=== PATIENT | female | born 1950 | race Native Hawaiian/Other Pacific Islander ===

== ENCOUNTER 2021-06-08 12:10 | Observation (INO) | payer OTHER ==
[~2021-06-08] VITALS: Ht 157.5 cm; Wt 54.1 kg
[2021-06-08] VITALS (7 sets, daily range): BP systolic 103–163; BP diastolic 56–105; TEMP 97.1–98.8; Ht 157.5 cm; Wt 54.1 kg
[2021-06-08 13:07] LABS: PLATELET COUNT 232 K/uL (152-353)
[2021-06-08 13:16] LABS: POTASSIUM 4.1 mmol/L (3.6-5.2)
[2021-06-09 00:02] VITALS: BP 136/54; TEMP 98.3
[2021-06-09 04:00] VITALS: BP 117/55; TEMP 98.5
[2021-06-09 04:33] LABS: PLATELET COUNT 171 K/uL (152-353)
[2021-06-09 04:52] LABS: POTASSIUM 3.8 mmol/L (3.6-5.2)
[2021-06-09 08:00] VITALS: BP 103/53; TEMP 98.7
[2021-06-09 12:00] VITALS: BP 120/47; TEMP 98.6
[2021-06-09 16:00] VITALS: BP 130/50; TEMP 98.5
[2021-06-09 20:00] VITALS: BP 122/57; TEMP 97.9
[2021-06-10] VITALS: BP 142/56; TEMP 98.7
[2021-06-10 04:00] VITALS: BP 148/59; TEMP 98.7
[2021-06-10 04:56] LABS: PLATELET COUNT 173 K/uL (152-353)
[2021-06-10 05:23] LABS: POTASSIUM 3.8 mmol/L (3.6-5.2)
[2021-06-10 08:00] VITALS: BP 157/61; TEMP 98.5
== END 2021-06-10 16:15 | disposition home or self-care (01) ==
LOC: ED 12:10 → MED/SURG 14:35
PROVIDERS: Hospitalist; ADMIT Family Medicine; ATTEND Family Medicine
DX: K85.80 Other acute pancreatitis without necrosis or infection (principal); R07.89 Other chest pain; F17.210 Nicotine dependence, cigarettes, uncomplicated; K21.9 Gastro-esophageal reflux disease without esophagitis; F41.8 Other specified anxiety disorders
CPT/HCPCS: 36415; 80053; 80061; 80320; 81000; 82150; 82550; 83605; 83690; 83735; 84100; 84443; 84484; 85027; 87635; 93005; 96360; 96375; 99220; 99284; G0378; J1170; J1885; J2405; J2543; J2765; J3490; Q9963; U0003

== ENCOUNTER 2021-06-20 13:24 | Outpatient (CLI) | payer OTHER ==
[2021-06-20 14:08] LABS: POTASSIUM 3.4 mmol/L (3.6-5.2)
[2021-06-20 14:09] LABS: PLATELET COUNT 278 K/uL (152-353)
== END 2021-06-20 20:02 | disposition home or self-care (01) ==
LOC: LABW 13:24
PROVIDERS: ATTEND Nurse Practitioner Family
DX: K85.90 Acute pancreatitis without necrosis or infection, unspecified (principal)
CPT/HCPCS: 36415; 80053; 82150; 83690; 85027